=== PATIENT | female | born 1990 | race Two or more races ===

== ENCOUNTER 2023-09-13 14:54 | Outpatient (CLI) | payer OTHER | END 2023-09-13 14:56 | disposition home or self-care (01) | LOC: PRENATAL 14:54 | PROVIDERS: ATTEND Obstetrics & Gynecology Maternal & Fetal Medicine | DX: O36.80X0 Pregnancy with inconclusive fetal viability, not applicable or unspecified (principal); Z36.82 Encounter for antenatal screening for nuchal translucency; O09.511 Supervision of elderly primigravida, first trimester; Z3A.11 11 weeks gestation of pregnancy ==

== ENCOUNTER → 2023-11-08 08:04 | Outpatient (CLI) | payer OTHER | END | disposition home or self-care (01) | LOC: PRENATAL 08:04 | PROVIDERS: ATTEND Obstetrics & Gynecology Maternal & Fetal Medicine | DX: O35.3XX0 Maternal care for (suspected) damage to fetus from viral disease in mother, not applicable or unspecified (principal); O44.00 Complete placenta previa NOS or without hemorrhage, unspecified trimester; O09.519 Supervision of elderly primigravida, unspecified trimester; Z3A.19 19 weeks gestation of pregnancy ==

== ENCOUNTER → 2024-01-10 08:55 | Outpatient (CLI) | payer OTHER | END | disposition home or self-care (01) | LOC: PRENATAL 08:55 | PROVIDERS: ATTEND Obstetrics & Gynecology Maternal & Fetal Medicine | DX: O26.849 Uterine size-date discrepancy, unspecified trimester (principal); O09.519 Supervision of elderly primigravida, unspecified trimester; O43.90 Unspecified placental disorder, unspecified trimester; O10.019 Pre-existing essential hypertension complicating pregnancy, unspecified trimester; Z3A.28 28 weeks gestation of pregnancy ==

== ENCOUNTER 2024-02-07 16:38 | Inpatient (IN) | payer OTHER ==
[~2024-02-07] VITALS: Ht 157.5 cm; Wt 68.5 kg
[2024-02-07 15:38] VITALS: BP 143/97
[2024-02-07 15:40] VITALS: BP 125/83
[2024-02-07] MEDS ORDERED: RINGERS SOLUTION,LACTATED 1,000 ML IV SCH (18:30)
[2024-02-07 20:00] VITALS: BP 151/93
[2024-02-07] MEDS ORDERED: LABETALOL HCL 200 MG TABLET PO SCH (21:00)
[2024-02-07 23:15] VITALS: BP 138/89
[2024-02-08 03:42] VITALS: BP 144/81
[2024-02-08 06:04] VITALS: BP 133/88; O2SAT 100
[2024-02-08 11:05] VITALS: BP 144/97; O2SAT 100
[2024-02-08 15:48] LABS: HEMATOCRIT 44.6 % (36.0-45.00); HEMOGLOBIN 15.6 g/dL (12.0-15.00); MEAN CELL VOLUME 91.5 fL (80.00-100.00); MEAN CORPUSCULAR HGB CONC 34.9 g/dl (32.0-36.0); PLATELET COUNT 177 K/uL (150-450); RED BLOOD COUNT 4.87 M/uL (4.00-6.00); RED CELL DISTRIBUTION WIDTH 14.1 % (11.5-14.5)
[2024-02-08 16:00] VITALS: BP 145/92
[2024-02-08 16:21] LABS: ALBUMIN 2.9 gm/dL (3.4-5.0); BILIRUBIN TOTAL 0.57 mg/dL (0.3-1.2); CALCIUM 9.2 mg/dL (8.5-10.1); CREATININE SERUM 0.62 mg/dL (0.55-1.02); GFR 109.54; GLOBULINA 3.9 G/DL (2.4-3.5); POTASSIUM 4.3 mEq/L (3.5-5.1); TOTAL PROTEIN 6.8 gm/dL (6.4-8.2)
[2024-02-08] MEDS ORDERED: CEFAZOLIN SODIUM 1,000 MG VIAL IV STA (16:22)
[2024-02-08] MEDS ORDERED: PROMETHAZINE HCL 50 MG/ML AMPUL IM PRN (17:45)
[2024-02-08] MEDS ORDERED: MEPERIDINE HCL/PF 50 MG/ML VIAL IM PRN (17:45)
[2024-02-08 18:16] LABS: CREATININE URINE RANDOM 24.4 MG/DL (30-125)
[2024-02-08] MEDS ORDERED: ERYTHROMYCIN BASE OPHT 1GM EACH TUBE OP ONE (18:30)
[2024-02-08] MEDS ORDERED: OXYTOCIN 10 UNITS/ML VIAL IV ONE (18:30)
[2024-02-08] MEDS ORDERED: MAGNESIUM SULFATE IN WATER 500 ML IV SCH (19:00)
[2024-02-08] MEDS ORDERED: LABETALOL HCL 100 MG/20 ML ML IV ONE (19:00)
[2024-02-08] MEDS ORDERED: MAGNESIUM SULFATE IN WATER 4 GM/100 ML PIGGYBACK IV ONE (19:00)
[2024-02-08] MEDS ORDERED: hydrALAZINE HCL 20 MG VIAL IV ONE (20:15)
[2024-02-08] MEDS ORDERED: LABETALOL HCL 300 MG TABLET PO ONE (20:45)
[2024-02-08] MEDS ORDERED: KETOROLAC TROMETHAMINE 30 MG VIAL IV SCH (21:00)
[2024-02-08 22:22] VITALS: BP 116/79
[2024-02-09 01:02] VITALS: BP 102/67
[2024-02-09] MEDS ORDERED: OxyCODONE HCL/APAP UD (PERCOCET) PO PRN (08:00)
[2024-02-09 08:52] VITALS: BP 110/63
[2024-02-09] MEDS ORDERED: PNV,CALCIUM 72/IRON/FOLIC ACID 1 TAB TABLET PO SCH (09:00)
[2024-02-09] MEDS ORDERED: SIMETHICONE 125 MG CAPSULE PO SCH (09:00)
[2024-02-09] MEDS ORDERED: DOCUSATE SODIUM 100MG CAP PO SCH (09:00)
[2024-02-09 11:46] LABS: HEMATOCRIT 30.9 % (36.0-45.00); HEMOGLOBIN 10.9 g/dL (12.0-15.00); MEAN CELL VOLUME 90.9 fL (80.00-100.00); MEAN CORPUSCULAR HEMOGLOBIN 32.1 pg (27.00-32.0); MEAN CORPUSCULAR HGB CONC 35.3 g/dl (32.0-36.0); PLATELET COUNT 198 K/uL (150-450); RED CELL DISTRIBUTION WIDTH 13.7 % (11.5-14.5)
[2024-02-09 12:21] LABS: ALBUMIN 2.2 gm/dL (3.4-5.0); BILIRUBIN TOTAL 0.41 mg/dL (0.3-1.2); CALCIUM 7.3 mg/dL (8.5-10.1); CREATININE SERUM 0.76 mg/dL (0.55-1.02); GFR 86.6; GLOBULINA 2.9 G/DL (2.4-3.5); POTASSIUM 4.48 mEq/L (3.5-5.1); TOTAL PROTEIN 5.1 gm/dL (6.4-8.2)
[2024-02-09] MEDS ORDERED: ACETAMINOPHEN 500 MG GEL..CAP PO PRN (14:45)
[2024-02-09 16:02] VITALS: BP 92/60
[2024-02-09] MEDS ORDERED: LABETALOL HCL 200 MG TABLET PO SCH (17:00)
[2024-02-09 19:53] VITALS: BP 100/67
[2024-02-10 00:48] VITALS: BP 100/60
[2024-02-10 08:22] VITALS: BP 100/69
[2024-02-10 15:32] VITALS: BP 103/69
[2024-02-10] MEDS ORDERED: IBUprofen 800 MG TABLET PO SCH (17:45)
[2024-02-11 00:19] VITALS: BP 113/72
[2024-02-11 07:58] VITALS: BP 112/71
[2024-02-11] MEDS ORDERED: IBUprofen 800 MG TABLET PO SCH (09:00)
[2024-02-11 15:02] VITALS: BP 130/82
[2024-02-11] MEDS ORDERED: LABETALOL HCL 100 MG TABLET PO SCH (17:00)
== END 2024-02-11 19:44 | disposition home or self-care (01) | DRG 786 ==
LOC: OBS/DEL 16:38 → LDR 02-08 16:15 → OB/GYN 02-08 16:15 → O/R 02-08 17:12 → OB/GYN 02-08 19:54
PROVIDERS: Obstetrics & Gynecology; ADMIT General Practice; ATTEND General Practice
PROC: 4A1HXCZ Monitoring of Products of Conception, Cardiac Rate, External Approach (ICD-10-PCS; 2024-02-08)
PROC: BY4FZZZ Ultrasonography of Third Trimester, Single Fetus (ICD-10-PCS; 2024-02-08)
PROC: BY47ZZZ Ultrasonography of Fetal Umbilical Cord (ICD-10-PCS; 2024-02-08)
PROC: 10D00Z1 Extraction of Products of Conception, Low, Open Approach (ICD-10-PCS; principal; 2024-02-08 16:30)
DX: O36.5930 Maternal care for other known or suspected poor fetal growth, third trimester, not applicable or unspecified (principal); O60.14X0 Preterm labor third trimester with preterm delivery third trimester, not applicable or unspecified; O10.02 Pre-existing essential hypertension complicating childbirth; O33.8 Maternal care for disproportion of other origin; O36.8130 Decreased fetal movements, third trimester, not applicable or unspecified; O43.93 Unspecified placental disorder, third trimester; O13.4 Gestational [pregnancy-induced] hypertension without significant proteinuria, complicating childbirth; Z3A.32 32 weeks gestation of pregnancy; Z37.0 Single live birth; Z20.822 Contact with and (suspected) exposure to COVID-19; Z3A.33 33 weeks gestation of pregnancy

== ENCOUNTER → 2024-02-07 | Outpatient (CLI) | payer OTHER ==
[~2024-02-07] MED LIST: ADULT LOW DOSE81 M1 PO; LABETALOL HCL100 MG PO; PRENATABS RX T1 EACH PO
== END | disposition home or self-care (01) ==
LOC: PRENATAL 12:55 → NST 12:55
PROVIDERS: ATTEND Obstetrics & Gynecology Maternal & Fetal Medicine
DX: O36.8199 Decreased fetal movements, unspecified trimester, other fetus (principal); O09.519 Supervision of elderly primigravida, unspecified trimester; O43.90 Unspecified placental disorder, unspecified trimester; O13.9 Gestational [pregnancy-induced] hypertension without significant proteinuria, unspecified trimester; O36.5990 Maternal care for other known or suspected poor fetal growth, unspecified trimester, not applicable or unspecified; Z3A.32 32 weeks gestation of pregnancy